=== PATIENT | male | born 1965 | race Caucasian/White ===

== ENCOUNTER 2016-12-20 07:38 | Emergency (ER) | payer OTHER ==
[2016-12-20 07:43] VITALS: BP 103/73; PULSE 88; TEMP 97.7; O2SAT 100
[2016-12-20] MEDS ORDERED: Naproxen 550 mg Tab PO STA (08:02)
--- NOTE | 2016-12-20 08:12 | C.PDOC ---
History Of Present Illness 51 yo male, hx of hernia repair, presents with pain to his right groin. pt reports he has had pain "for over a year", specifically to an area to the right groin/upper leg. pt states he had ultrasounds of the legs, testiculees, "and no one can figure it out". pt states pain worse with standing, no fevers, no trauma , no other complaints. Time Seen by Provider: 12/20/16 07:56 Chief Complaint (Nursing): Groin Pain Past Medical History Reviewed: Historical Data, Nursing Documentation, Vital Signs Vital Signs: Last Vital Signs Temp 97.7 F 12/20/16 07:40 Pulse 88 12/20/16 07:40 Resp 18 12/20/16 08:33 BP 103/73 12/20/16 07:40 Pulse Ox 100 12/20/16 09:01 - Medical History PMH: Rheumatoid Arthritis Family History: States: Unknown Family Hx - Social History Hx Alcohol Use: No Hx Substance Use: No - Immunization History Hx Tetanus Toxoid Vaccination: No Hx Influenza Vaccination: No Hx Pneumococcal Vaccination: No Review Of Systems Musculoskeletal: Positive for: Leg Pain Physical Exam - Physical Exam Appears: Well, No Acute Distress Skin: Normal Color, Warm, Dry Eye(s): bilateral: Normal Inspection, PERRL, EOMI Nose: Normal Throat: Normal Neck: Normal Cardiovascular: Rhythm Regular Respiratory: Normal Breath Sounds Gastrointestinal/Abdominal: Normal Exam Back: Normal Inspection Male Genital: Normal Inspection, Testicular Tenderness, No Testicular Swelling, No Inguinal Tenderness, No Inguinal Swelling, No Scrotal Swelling, Other ((+) point ttp to right upper leg, no swelling ,erythema, fluctuance. ) Extremity: Normal ROM ED Course And Treatment O2 Sat by Pulse Oximetry: 100 Medical Decision Making Medical Decision Making: pt with chronic leg pain x more than 1 year. point ttp . no clinical concern for dvt, abscess, hernia, testicular torsion, 822: unable to reach pmd, as he is not in office, however, able to get fax of medical records. pt was seen in follow up at [facility] on 11/05/16, as er followup from [facility]. documentation makes note pt had US done at [facility]. pt was refered to urology. Disposition - Disposition Disposition: HOME/ ROUTINE Disposition Time: 08:20 Condition: STABLE Additional Instructions: please follow up with your doctor. return to er with worsening ysmptoms or concerns. you will need further evalatuoin as an outpt Prescriptions: Naproxen [Naprosyn] 500 mg PO BID PRN #14 tablet PRN Reason: Pain, Mild (1-3) Instructions: Groin Pain (ED) Forms: [facility] (Nauruan) - Clinical Impression Clinical Impression: Groin pain
[2016-12-20] MEDS ORDERED: Naproxen 550 mg Tab PO ONE (08:16)
[2016-12-20 08:40] VITALS: RESP 18
== END 2016-12-20 08:33 | disposition home or self-care (01) ==
LOC: C.ER 07:38
DX: R10.31 Right lower quadrant pain (principal)

== ENCOUNTER 2018-02-27 14:29 | Emergency (ER) | payer OTHER ==
[2018-02-27 14:46] VITALS: BP 100/69; PULSE 61; RESP 19; TEMP 97.9; O2SAT 99
--- NOTE | 2018-02-27 16:00 | C.PDOC ---
History Of Present Illness 53 y/o [place] male with no hx medical problems presents with multiple complaints of sore throat x 3 days with swallowing. no fever. pt wiht intermittent chest pain, c/o abdominal pain, and groin record cutter at site of prior hernia surgeries. pt denies nausea and vomiting, last bm today Time Seen by Provider: 02/27/18 15:10 Chief Complaint (Nursing): ENT Problem History Per: Patient History/Exam Limitations: no limitations Onset/Duration Of Symptoms: Days Current Symptoms Are (Timing): Still Present Past Medical History Reviewed: Historical Data, Nursing Documentation, Vital Signs Vital Signs: Last Vital Signs Temp 97.9 F 02/27/18 14:43 Pulse 61 02/27/18 14:43 Resp 19 02/27/18 14:43 BP 100/69 02/27/18 14:43 Pulse Ox 99 02/27/18 14:43 - Medical History PMH: Rheumatoid Arthritis Family History: States: Unknown Family Hx - Social History Hx Alcohol Use: No Hx Substance Use: No - Immunization History Hx Tetanus Toxoid Vaccination: No Hx Influenza Vaccination: No Hx Pneumococcal Vaccination: No Review Of Systems Except As Marked, All Systems Reviewed And Found Negative. Constitutional: Negative for: Fever ENT: Positive for: Throat Pain (sore throat) Cardiovascular: Positive for: Chest Pain Gastrointestinal: Positive for: Abdominal Pain, Other (groin pain. ). Negative for: Nausea, Vomiting Physical Exam - Physical Exam Appears: Non-toxic Skin: Normal Color, Warm, Dry Head: Atraumatic, Normacephalic Eye(s): bilateral: PERRL Oral Mucosa: Dry Neck: Normal ROM, Supple Chest: Symmetrical, No Deformity Cardiovascular: Rhythm Regular, No Murmur Respiratory: Normal Breath Sounds, No Rales, No Rhonchi, No Wheezing Gastrointestinal/Abdominal: Soft, Tenderness (suprapubic tenderness bilaterally. ), No Distention, No Guarding, No Rebound, Other Extremity: Normal ROM (x4), No Swelling Neurological/Psych: Oriented x3, Normal Speech, Normal Motor, Normal Sensation, Normal Reflexes Gait: Steady ED Course And Treatment ECG: Interpreted By Me, Viewed By Me ECG Rhythm: Sinus Rhythm ECG Interpretation: Normal Interpretation Of ECG: rate 64 bpm. Normal sinus rhythm. Normal ECG. O2 Sat by Pulse Oximetry: 99 (RA) Pulse Ox Interpretation: Normal Progress Note: Prescribed Tylenol. Patient left against medical advice prior to further evaluation. Medical Decision Making Medical Decision Making: pt examined, with mark juarez lower abdomen, pt declines blood work or any imaging studies, only wants something for pain in throat. pt understands that wothout labs or other testing, he will be leaving [facility]. pt understands risks and consequences, including permanent disability and . wi;; d/c pt with tylenol and pmd outpt f/u Disposition - Disposition Referrals: [facility] [Outside] Disposition: AGAINST MEDICAL ADVICE Disposition Time: 17:05 Condition: STABLE Additional Instructions: Please [facility] up with [facility]., Tylenol as prescribed for pain. Gargle with warm salty water. Return to ER for any worse symptoms. Prescriptions: Acetaminophen [Tylenol 325mg tab] 650 mg PO Q6 #30 tab Instructions: Acute Abdomen (Belly Pain), Adult (DC), Viral Pharyngitis (DC) Forms: [facility] (Rwandan), General Discharge Instructions - Clinical Impression Clinical Impression: Left against medical advice, Pharyngitis, Abdominal pain - PA / POLICY CHANGE CLERK / Resident Statement MD/DO has reviewed & agrees with the documentation as recorded. - Scribe Statement The provider has reviewed the documentation as recorded by the Scribe (Yecenia Tavarez) All medical record entries made by the Scribe were at my direction and personally dictated by me. I have reviewed the chart and agree that the record accurately reflects my personal performance of the history, physical exam, medical decision making, and the department course for this patient. I have also personally directed, reviewed, and agree with the discharge instructions and disposition.
--- NOTE | 2018-03-03 11:11 | CARD ---
APPROVED REPORT Date of service: 02/27/2018 EKG Measurement Heart [id number] <Conclusion> Normal sinus rhythm Normal ECG
== END 2018-02-27 15:12 | disposition left against medical advice (07) ==
LOC: C.ER 14:29
DX: J02.9 Acute pharyngitis, unspecified (principal); R10.30 Lower abdominal pain, unspecified